=== PATIENT | male | born 1975 | race African-American/Black ===

== ENCOUNTER 2018-01-04 03:02 | Emergency (ER) | payer OTHER ==
[~2018-01-04] VITALS: Ht 175.3 cm; Wt 116.9 kg
[~2018-01-04 03:02] MED LIST: HTN; MOTRIN; PROVENTIL HFA6.7 GM IH; TYLENOL325 M1 PO; VICODIN 5-5001 EACH PO; VICODIN,LORT1 TABLET PO; ZANTAC150 MG PO; ZOFRAN ODT4 MG PO; [UNRECOGNIZED DRUG - OTHER] PO
[2018-01-04 03:08] VITALS: BP 195/116
== END 2018-01-04 03:46 | disposition home or self-care (01) ==
LOC: EME → EDBD 03:02 → EME 03:02
PROC: 3E0234Z Introduction of Serum, Toxoid and Vaccine into Muscle, Percutaneous Approach (ICD-10-PCS; principal; 2018-01-04)
DX: S00.81XA Abrasion of other part of head, initial encounter (principal); S50.812A Abrasion of left forearm, initial encounter; Y09 Assault by unspecified means; Y07.59 Other non-family member, perpetrator of maltreatment and neglect; Z23 Encounter for immunization; I10 Essential (primary) hypertension; J45.909 Unspecified asthma, uncomplicated; B19.20 Unspecified viral hepatitis C without hepatic coma; F17.200 Nicotine dependence, unspecified, uncomplicated; Z88.6 Allergy status to analgesic agent; Z88.8 Allergy status to other drugs, medicaments and biological substances
CPT/HCPCS: 99281; 99284

== ENCOUNTER 2018-01-11 04:21 | Inpatient (IN) | payer OTHER ==
[~2018-01-11] VITALS: Ht 175.3 cm; Wt 109.0 kg
[2018-01-11] MEDS ORDERED: MOTRIN800 MG PO (04:51)
[2018-01-11] MEDS ORDERED: HTN MED PO (04:52)
[2018-01-11 05:05] LABS: HEMATOCRIT 41.5 % (38.0-50.0); HEMOGLOBIN 14.3 G/DL (12.5-16.6); MCH 31.2 PG (29.0-34.0); MCHC 34.5 G/DL (30.0-36.0); MCV 90.6 FL (86-99); PLATELET COUNT 261 K/uL (156-360); RBC DIS.WIDTH-CV 13.9 % (11.8-14.6); RED BLOOD COUNT 4.58 M/uL (4.00-5.50); WHITE BLOOD COUNT 7.4 K/uL (4.1-10.2)
[2018-01-11 05:15] LABS: ALBUMIN 4.3 g/dL (3.2-4.8)
[2018-01-11 05:16] LABS: CHLORIDE 99 mEq/L (99-109); POTASSIUM 3.4 mEq/L (3.7-5.4); SODIUM 138 mEq/L (136-147)
[2018-01-11 05:18] LABS: GLUCOSE 130 mg/dL (70-99); TOTAL PROTEIN 7.8 g/dL (6.4-8.3)
[2018-01-11 05:20] LABS: TOTAL BILIRUBIN 0.8 mg/dL (0.0-1.0)
[2018-01-11 05:21] LABS: ALKALINE PHOSPHATASE 47 IU/L (3-129); SERUM ETHYL ALCOHOL < 10 mg/dL
[2018-01-11 05:22] LABS: GFR ESTIMATE (CALCULATED) > 59 mL/min/ (58.99-99999)
[2018-01-11 05:23] LABS: AST (GOT) 27 IU/L (2-34); UREA NITROGEN (BUN) 12 mg/dL (9-23)
[2018-01-11 05:25] LABS: ALT (GPT) 33 IU/L (3-49)
[2018-01-11 05:31] LABS: APPEARANCE CLOUDY ((CLEAR)); BILIRUBIN NEGATIVE; BLOOD NEGATIVE; COLOR YELLOW ((YELLOW)); GLUCOSE (STRIP) NEGATIVE; KETONES 5; LEUKOCYTES SMALL; NITRITE NEGATIVE; PROTEIN (STRIP) 100; SPECIFIC GRAVITY 1.032 (1.000-1.030)
[2018-01-11 05:39] LABS: BACTERIA NONE SEEN /HPF; EPITHELIAL CELLS 1+ /HPF; HYALINE CASTS 0-5 /LPF; MUCUS 4+ /LPF; WHITE BLOOD CELLS 20-30 /HPF (0-5)
[2018-01-11 05:45] LABS: AMPHETAMINE NEGATIVE (500 ng/mL); BARBITURATES NEGATIVE (200 ng/mL); BENZODIAZEPINES NEGATIVE (150 ng/mL); BUPRENORPHINE NEGATIVE (10 ng/mL); COCAINE PRESUMPTIVE POSITIVE (150 ng/mL); METHADONE NEGATIVE (200 ng/mL); METHAMPHETAMINE NEGATIVE (500 ng/mL); OPIATES (MORPHINE) NEGATIVE (100 ng/mL); OXYCODONE NEGATIVE (100 ng/mL); PHENCYCLIDINE NEGATIVE (25 ng/mL); PROPOXYPHENE NEGATIVE (300 ng/mL); THC CANNABINOIDS NEGATIVE (50 ng/mL); TRICYCLIC ANTIDEPRESSANTS NEGATIVE (300 ng/mL)
[2018-01-11] MEDS ORDERED: LOPRESSOR25 MG PO (09:37)
[2018-01-11 09:38] VITALS: BP 144/93
[2018-01-11 15:44] VITALS: BP 135/70
[2018-01-12 15:38] VITALS: BP 159/78
[2018-01-13 07:52] VITALS: BP 123/58
== END 2018-01-13 13:36 | disposition home or self-care (01) | DRG 881 ==
LOC: EME 04:21 → EDOF 06:10 → 1WEST 06:10 → ENRESERV 09:26 → 1WEST 01-13 13:36
PROVIDERS: Emergency Medicine
DX: F43.21 Adjustment disorder with depressed mood (principal); R45.851 Suicidal ideations; F60.2 Antisocial personality disorder; Z76.5 Malingerer [conscious simulation]; F10.10 Alcohol abuse, uncomplicated; F11.10 Opioid abuse, uncomplicated; F12.90 Cannabis use, unspecified, uncomplicated; F14.10 Cocaine abuse, uncomplicated; F17.200 Nicotine dependence, unspecified, uncomplicated; I10 Essential (primary) hypertension; J45.909 Unspecified asthma, uncomplicated; B18.2 Chronic viral hepatitis C; G89.29 Other chronic pain; M25.562 Pain in left knee; Z83.3 Family history of diabetes mellitus
CPT/HCPCS: 80053; 81003; 84999; 85027; 90837; 99281; 99285; G0480